=== PATIENT | male | born 1960 | race Caucasian/White ===

== ENCOUNTER 2023-10-29 11:01 | Emergency (ER) | payer OTHER, SELFPAY ==
[2023-10-29 11:02] VITALS: BP 137/84; PULSE 115; RESP 20; TEMP 35.9; O2SAT 94; BMI 27.3
[2023-10-29 11:12] VITALS: O2SAT 95
--- NOTE | 2023-10-29 11:21 | EDS_ITS ---
HPI History of Present Illness Chief Complaint: Shortness of Breath Informant: patient Onset/Context/Timing Onset: Days Narrative Narrative: Patient presents secondary to feeling sick for the past week. He has had cough and congestion and over the last day or 2 is bringing up green-colored sputum. He went to urgent care hoping to get an antibiotic and was sent to the emergency room because his pulse ox was 91% on room air. Patient states he has been winded for quite some time. He has a 40+ pack year smoker. He does not go to a doctor. He states he is never been diagnosed with COPD but does not doubt that he has it. He will occasionally use his 's albuterol inhaler to help with his breathing. He has had some low-grade fevers this past week but it improves with aspirin. He states he will feel some chest pain first in the morning when he is bringing up a lot of thick sputum. PFSH PFSH Medical History no medical history no medical history Home Medications Zithromax Z-Roe 10 mg PO DAILY 01/02/17 [History Last Taken 01/02/17 10:00] oxycodone 5 mg tablet 5 mg PO Q4H PRN PRN Severe Pain (6-10/10) ##20 01/04/17 [Rx Last Taken Unknown] albuterol sulfate 90 mcg/actuation aerosol inhaler (Ventolin HFA) 2 puff inhalation Q4H PRN PRN Wheezing ##1 10/29/23 [Rx Last Taken Unknown] azithromycin 250 mg tablet (Zithromax) 250 mg PO DAILY 4 days #4 tabs 10/29/23 [Rx Last Taken Unknown] prednisone 20 mg tablet 40 mg (2 x 20 mg) PO DAILY #8 tabs 10/29/23 [Rx Last Taken Unknown] Allergy/AdvReac Type Severity Reaction Status Date / Time No Known Allergies Allergy Verified 10/29/23 11:02 Surgical History (Updated 10/29/23 @ 11:[address] Mary Ramos MD) Hx of cholecystectomy Social History Smoking Status: Current every day smoker tobacco type: cigarettes ROS ROS ED Constitutional Constitutional ED: Reports fever(s); Denies chills Eyes Eyes: Denies change in vision or discharge from eye(s) ENT ENT ED: Denies discharge from eye(s), rhinorrhea or sore throat Cardiovascular Cardiovascular: Denies palpitations Respiratory/Chest Respiratory/Chest: Reports cough and dyspnea Gastrointestinal Gastrointestinal: Denies abdominal pain, nausea or vomiting Genitourinary Genitourinary ED: Denies dysuria Musculoskeletal Musculoskeletal: Denies back pain or extremity pain Integumentary Denies Abrasions or rash Neurologic Neurologic: Denies headache(s) or weakness Psychiatric Psychiatric: Denies anxiety or depression Allergic/Immunologic Allergic/Immunologic ED: Denies lip swelling or urticaria EXAM Physical Exam Const Vital Signs: 10/29/23 11:02 10/29/23 11:12 10/29/23 11:12 Temperature 96.7 F L Temperature Source Temporal Pulse Rate 115 H Respiratory Rate 20 H Respiratory Effort Short of Breath Respiratory Depth Normal Blood Pressure 137/84 H Blood Pressure Mean 101 Pulse Ox 94 95 Oxygen Delivery Method Room Air Room Air Room Air 10/29/23 12:29 10/29/23 11:38 Temperature Temperature Source Pulse Rate 103 H 100 Respiratory Rate 20 H 18 Respiratory Effort Respiratory Depth Blood Pressure Blood Pressure Mean Pulse Ox 92 Oxygen Delivery Method Room Air Positive well nourished and well developed General Appearance ED: well developed HEENT Reports moist mucous membranes Eyes EOMs intact bilaterally Chest Wall inspection of chest normal and palpation of chest normal Resp Resp Narrative: Diminished breath sounds bilaterally with wheezing noted. Mild tachypnea. GI non-tender Palpation: soft Extremity normal to inspection Neuro oriented x3 and no sensory deficits noted Motor Exam: strength 5/5 throughout Psych mental status grossly normal Skin no rashes or lesions noted MDM MDM MDM Narrative Medical decision making narrative: Patient given aerosol treatments along with p.o. prednisone. Two-view chest x- ray obtained to evaluate for potential infiltrate. Radiography Chest X-Ray - ED: 2 View, Read by ED Physician and Chronic Changes (Chronic scarring and COPD changes. Questionable infiltrate on the right.) Diagnostic Testing: Clinical Impression(s) from Imaging Studies Chest X-Ray 10/29/23 11:30 IMPRESSION: Question right lower lobe pneumonia versus atelectasis or scarring. COPD. Electronically Signed: Mt Hanson MD at 11:42 EST , Treatment and Re-Evaluation :: After aerosols and steroids patient remains slightly tachypneic with O2 sat of 92% on room air. Lung sounds are diminished but wheezing is improved. He ambulates up and down the coughlin without difficulty. On return to his room his O2 sat is 82% but he quickly recovers. He states that he has been short of breath for quite some time he does not want to come in the hospital. He has not followed up with a doctor. His two-view chest x-ray shows changes consistent with COPD. They question whether the patient may have a right lower lobe infiltrate. Given that he clinically has COPD he will be covered with antibiotics as well as steroids and an inhaler. He is given return instructions. I will also refer him to a local PCP to establish care. Discharge Plan Triage Chief Complaint: Shortness of Breath ED Provider: Mary Ramos Dx/Rx/DC Orders Clinical Impression: COPD exacerbation Instructions: ED COPD Flare Prescriptions: New prednisone 20 mg tablet 40 mg PO DAILY Qty: 8 0RF albuterol sulfate [Ventolin HFA] 90 mcg/actuation HFA aerosol inhaler 2 puff inhalation Q4H PRN PRN (Reason: Wheezing) Qty: 1 0RF azithromycin [Zithromax] 250 mg tablet 250 mg PO DAILY 4 Days Qty: 4 0RF Rx Instructions: start on day 2 of therapy No Action Zithromax Z-Roe 10 mg PO DAILY Patient Comments: ANTIBIOTIC - ONLY 1 MORE PILL TO GO IN ZPACK oxycodone 5 MG tablet 5 mg PO Q4H PRN PRN (Reason: Severe Pain (6-10/10)) Qty: 20 0RF Primary Care Provider: Care Physician,No Primary Referrals: Soraya Williamson MD [Med Staff - Salsa Dance Instructor] - As soon as possible NOT,DEFINED [Non-Staff] - Disposition Disposition: Home, Self Care
--- NOTE | 2023-10-29 11:30 | RAD_ITS ---
EXAM: XR CHEST, 2 VIEWS CLINICAL INDICATION: sob TECHNIQUE: Frontal and lateral views of the chest. COMPARISON: XR Chest dated 01/13/2017 FINDINGS: LUNGS AND PLEURAL SPACES: Right lower lobe pulmonary opacity which may represent focal pneumonia, atelectasis or scarring. Hyperinflation suggesting emphysema. Blunting of the right costophrenic angle may be due to a small amount of fluid or pleural thickening. HEART: Normal heart size. MEDIASTINUM: No mediastinal or hilar mass. BONES/JOINTS: No acute abnormality. RAD/Chest PA and Lateral IMPRESSION: Question right lower lobe pneumonia versus atelectasis or scarring. COPD. Electronically Signed: Mt Hanson MD at 11:42 EST ,
[2023-10-29 11:38] VITALS: PULSE 100; RESP 18
[2023-10-29] MEDS: Albuterol 2.5 MG/3 ML VIAL.NEB. INHALATION ×2 (11:38)
[2023-10-29] MEDS: predniSONE 20 MG Tablet 60 MG PO (11:38)
[2023-10-29] MEDS: Ipratropium/Albuterol Sulfate 3 ML AMPUL.NEB INHALATION (11:38)
--- OUTSIDE RECORDS SUMMARY | 2023-10-29 11:50 | XMS RPT_ITS | CCD ---
Author Name Unknown Address [address] [place] [address] Organization [facility] Care Team Providers Care Car Manager Name Role Phone Isac SWANSON, Agusto Borrero Primary Care Provider Medications Completed/Discontinued Medications Medication Drug Class(es) Dates Sig (Normalized) Sig (Original) [id number] 200 actuat albuterol 0.09 mg/actuat metered dose inhaler (1 source) beta2-Adrenergic Agonist Start: 09-27-2019 take 2 puff(s) by inhalation every four hours as needed for wheezing albuterol HFA (VENTOLIN HFA) 90 mcg/actuation inhaler Inhale 2 Puffs as instructed every 4 hours as needed for Wheezing/Shortnes s of Breath. 1 Inhaler 0 09/27/2019 Active Problems Active Problems Problem Classification Problem Date Documented Da te Episodic/Chronic Other male genital disorders (1 source) Secondary erectile dysfunction; Translations: [Male erectile dysfunction, unspecified] Onset: 08-09-2005 08-14-2006 Chronic Substance-related disorders (1 source) Tobacco user; Translations: [Nicotine dependence, unspecified, uncomplicated] Onset: 10-05-2009 10-05-2009 Chronic Past or Other Problems Problem Classification Problem Date Documented Da te Episodic/Chronic Allergic reactions (1 source) Urticaria; Translations: [Urticaria] Onset: 08-09-2005 08-09-2005 Episodic Biliary tract disease (1 source) Acute cholecystitis; Translations: [Acute cholecystitis] Onset: 01-08-2017 01-08-2017 Episodic Encounters Encounter Date Encounter Type Care Provider Facility Start: 12-06-[address] MD Work Phone: Family Practice Plan of Treatment Date Care Activity Detail Author Start: 10-30-2022 DEPRESSION ASSESSMENT DEPRESSION ASS [place] Start: 06-30-2022 Influenza vaccination INFLUENZA (#1) [facility] Start: 06-22-2022 LIPID SCREEN LIPID SCREEN [facility] Start: 07-14-2021 Urine microalbumin profile DTA P,TDAP,TD (2 - Td or Tdap) [facility] Start: 06-22-2020 DIABETES SCREEN DIABETES SCREEN [facility] Start: 07-07-2019 PROSTATE CANCER SCRE ENING DISCUSSION PROSTATE CANCER SCREENING DISCUSSION [facility] Start: 06-22-2018 COLORECTAL CANCER SCREENING COLORECTAL CANCER SCREENING [facility] Start: 06-22-2018 FECAL OCCULT BLOOD FECAL OCCULT BLOO D [facility] Start: 07-07-2015 PNEUMOCOCCAL (2 - PCV) PNEUMOCOCCAL (2 - PCV) [facility] Start: 2010 SHINGRIX VACCINE (1 of 2) SHINGRIX V ACCINE (1 of 2) [facility] Start: 2005 COLOGUARD (FIT-DNA) COLOGUARD (FIT-D NA) [facility] Start: 2005 Colonoscopy COLONOSCOPY [facility] Start: [address] COLONOGRAPHY [facility] Start: 2005 SIGMOIDOSCOPY SIGMOIDOSCOPY [facility] Start: 1978 HIV SCREENING HIV SCREENING [facility] Start: 03-14-1961 COVID-19 VACCINE (#1) COVID-19 VACCI NE (#1) [facility] Immunizations Immunization Date Immunization Notes Care Provider Melissa thorpe 07-07-2014 pneumococcal polysaccharide vaccine, 23 valent Agusto Freedman MD Work Phone: [facility] 07-14-2011 tetanus toxoid, redu yoli diphtheria toxoid, and acellular pertussis vaccine, adsorbed Agusto Freedman MD Work Phone: [facility] Work Phone: 08-09-2005 tetanus and diphther ia toxoids, not adsorbed, for adult use Agusto Freedman MD Work Phone: [facility] Payers Date Payer Category Payer Private Health Insurance BLANCA PARRISH [id number] 2021-Present [phone] CHARLIE [id number] LILO BARROW [id number] Open Access [id number] Social History Date Type Detail Facility Start: 10-04-2018 Tobacco smoking stat us NHIS Smokes tobacco daily [facility] End: 02-10-2017 History of tobacco use Cigarette Smoker [facility] Start: 10-04-2018 Cigarettes smoked cu rrent (pack per day) - Reported 1.5 [facility] Start: 10-04-2018 Tobacco use and exposure Smoke less tobacco non-user [facility] Start: 05-11-2020 Alcohol intake Current drinke r of alcohol (finding) [facility] Start: 1960 Sex Assigned At Not on file [facility] Progress note 12-13-2022 Note Date & Type Note Facility 12-13-2022 Note HNO ID: [id number] Author: Shahla Lyle Service: ? Author Type: ? Type: Progress Notes Filed: 12/13/2022 12:24 PM Note Text: Patient has established care elsewhere. [facility] Progress note 12-06-2022 Note Date & Type Note Facility 12-06-2022 Note HNO ID: [id number] Author: Patricia Martinez Service: ? Author Type: ? Type: Progress Notes Filed: 12/06/2022 3:53 PM Note Text: 1st attempt left voicemail. Patricia Martinez [facility] Progress note 12-06-2022 Note Date & Type Note Facility 12-06-2022 Note HNO ID: [id number] Author: Xiomara Reddy APRN.CNP Service: ? Author Type: Nurse Practitioner Type: Progress Notes Filed: 12/06/2022 3:53 PM Note Text: Please reach out to this patient to see if he is still planning to keep Dr. Freedman as her PCP as he has not been seen by him since 2017. If so, please schedule an appointment to re-establish care. If not, please remove his name from her chart. Xiomara Reddy APRN.DIMA [facility] History of Present illness Narrative 12-06-2022 Patricia Martinez - 12/06/2022 3:53 PM Laquita Reddy APRN.DIMA - 12/06/2022 2:14 PM EST Note Date & Type Note Facility 12-06-2022 History of Presen t illness Narrative 1st attempt left voicemail. Patricia Martinez Please reach out to this patient to see if he is still planning to keep Dr. Freedman as her PCP as he has not been seen by him since 2016. If so, please schedule an appointment to re-establish care. If not, please remove his name from her chart. Xiomara Reddy APRN.CNP documented in this encounter [facility] Clinical Note 12-06-2022 Note Date & Type Note Facility 12-06-2022 Note Patient Outreach (FP ROSARIODS) ANA SOUZA ([id number]) 1960 M Date Time Provider Department 12/06/22 AGUSTO FREEDMAN During your visit today, we recorded the following information about you: Xiomara Reddy APRN.CNP 12/06/2022 3:53 PM Signed Please reach out to this patient to see if he is still planning to keep Dr. Freedman as her PCP as he has not been seen by him since 2016. If so, please schedule an appointment to re-establish care. If not, please remove his name from her chart. ALEK Arrieta 12/06/2022 3:53 PM Signed 1st attempt left voicemail. Patricia Lyle 12/13/2022 12:24 PM Signed Patient has established care elsewhere. Allergies As of Date: 12/06/2022 (No Known Allergies) Date Reviewed: 05/11/2020 Reviewed by: Julian ([facility]) [place] - Fully Assessed Prescriptions as of 12/13/2022 - albuterol HFA (VENTOLIN HFA) 90 mcg/actuation inhaler Inhale 2 Puffs as instructed every 4 hours as needed for Wheezing/Shortness of Breath. - sildenafil (VIAGRA) 100 mg tablet TAKE 1 TABLET BY MOUTH NEEDED 30 TO 60 MINUTES BEFORE SEXUAL INTERCOURSE. - cyclobenzaprine (FLEXERIL) 10 mg tablet Use 1/2 - 1 tablet at bedtime Problem List As Of Date 12/06/2022 Noted Resolved URTICARIA [708] 08/09/2005 IMPOTENCE, ORGANIC ORIGN [N52.9] 08/09/2005 Tobacco Use Disorder [F17.200] 10/05/2009 Acute cholecystitis [K81.0] 01/08/2017 Encounter Status:Closed by PATRICIA MARTINEZ on 12/06/22 [facility] Summary Purpose Family History No Family History Records Found Advance Directives No Advanced Directives Records Found Additional Source Comments Source Comments (unrecognize d section and content) In the event this informatio n is protected by the Federal Confidentiality of Alcohol and Drug Abuse Patient Records regulations: The Federal rules restrict any use of the information to criminally investigate or prosecute any alcohol or drug abuse patient.[facility] Care Teams (unrecognized sec tion and content) (unrecognized sect ion and content) No Status Records Found INFORMATION SOURCE (unrecogn ized section and content) FOR RECORDS PERTAINING TO PATIENTS WHO ARE OR HAVE BEEN ENROLLED IN A CHEMICAL DEPENDENCY/SUBSTANCEABUSE PROGRAM, SOME INFORMATION MAY BE OMITTED. This clinical summary was aggregated from multiple sources. Caution should be exercised in using it in the provision of clinical care. This summary normalizes information from multiple sources, and as a consequence, information in this document may materially change the coding, format and clinical context of patient data. In addition, data may be omitted in some cases. CLINICAL DECISIONS SHOULD BE BASED ON THE PRIMARY CLINICAL RECORDS. [facility] provides no warranty or guarantee of the accuracy or completeness of information in this document.
[2023-10-29 12:29] VITALS: PULSE 103; RESP 20; O2SAT 92
[2023-10-29] MEDS: Azithromycin 250 MG Tablet 500 MG PO (12:55)
== END 2023-10-29 13:00 | disposition home or self-care (01) ==
PROVIDERS: Emergency Provider Emergency Medicine; Visit Provider Emergency Medicine
DX: J44.1 Chronic obstructive pulmonary disease with (acute) exacerbation (principal); F17.210 Nicotine dependence, cigarettes, uncomplicated
CPT/HCPCS: 71046; 94640; 99282; A4216

== ENCOUNTER → 2024-06-28 | Outpatient (CLI) | payer OTHER, SELFPAY ==
[2024-06-28 09:52] LABS: Bacteria 0 SEEN /hpf (None Seen); Mucous, Urine 0 SEEN /hpf (<or=2+); Red Blood Cells-Urine 0 SEEN /hpf (0-5); Squamous Epithelial Cells - UA 0 SEEN /hpf (0-5); White Blood Cells 0 SEEN /hpf (0-5)
[2024-06-28 12:28] LABS: Color, Urine Yellow (Yellow); Glucose, Dipstick Normal (Normal); Ketone-Dipstick Negative (Negative); Leukocyte Esterase-Dipstick Negative /ul (Negative); Nitrite-Dipstick Negative (Negative); Occult Blood-Urine Negative /ul (Negative); Protein-Dipstick Negative (Negative); Specific Gravity, Urine 1.015 (1.002-1.030); Urine Bilirubin Dipstick Negative (Negative); Urine Clarity Clear (Clear); Urine Urobilinogen Normal (Normal)
[2024-06-28 12:35] LABS: Absolute Lymphocyte Count 1.49 X10^3/uL (0.83-4.51); Absolute Neutrophil Count 6.4 X10^3/uL (2.0-7.7); Basophil# 0.04 X10^3/uL; Basophil% 0.5 % (0-1); Eosinophil# 0.07 X10^3/uL; Eosinophils% 0.8 % (0-5); Hematocrit 48.7 % (40-54); Hemoglobin 15.8 g/dL (13.0-16.5); Lymphocyte # 1.49 X10^3/ul (0.83-4.51); Mean Corp Hgb Conc 32.4 g/dL (32-36); Mean Corpuscular Hgb 27.7 pg (27.0-32.0); Mean Corpuscular Volume 85.4 fL (80-94); Mean Platelet Vol. 10.7 fl (6.2-12.0); Monocyte# 0.75 X10^3/uL; Monocyte% 8.6 % (0-10); NRBC Flagged by Analyzer 0 % (0-5); Neutrophil # 6.35 X10^3/uL (2.7-7.7); Neutrophil % 72.4 % (47-70); Platelet Count 368 K/mm3 (150-450); RBC Distribution Width CV 12.5 % (11.6-14.6); RBC Distribution Width SD 38.9 fl (35.1-43.9); White Blood Count 8.8 K/mm3 (4.4-11.0)
[2024-06-28 12:58] LABS: ALB/GLOB Ratio 0.7 RATIO (0.9-2.4); AST(SGOT) 15 U/L (15-37); Alanine Aminotransfer ALT/SGPT 21 U/L (16-61); Albumin, Serum 3.1 g/dL (3.2-5.0); Alkaline Phosphatase 181 U/L (45-117); Anion Gap 5 (5-15); BUN 6 mg/dL (7-18); BUN/Creat Ratio 8.2 RATIO (10-20); Calcium,Total 9.6 mg/dL (8.5-10.1); Chloride 102 mmol/L (98-107); Cholesterol 224 mg/dL (200); Creatinine, Serum 0.73 mg/dL (0.70-1.30); EST Glomerular Filtration Rate 115 mL/min (>60); Est Glom Filt Rate - Afr Amer 139 mL/min (>60); Globulin 4.2 g/dL (2.2-4.2); Glucose 94 mg/dL (74-106); High Density Lipoprotein 41 mg/dL; Potassium 4.2 mmol/L (3.5-5.1); Protein, Total 7.3 g/dL (6.4-8.2); Sodium Level 135 mmol/L (136-145); Triglycerides 107 mg/dL; Very Low Density Lipoprotein 21 mg/dL (5-40)
[2024-07-04 13:08] LABS: GGTP 82 IU/L (0-65)
== END | disposition home or self-care (01) ==
PROVIDERS: PCP Family Medicine; Visit Provider Family Medicine
DX: R74.8 Abnormal levels of other serum enzymes (principal); R04.2 Hemoptysis; F17.200 Nicotine dependence, unspecified, uncomplicated
CPT/HCPCS: 36415; 80053; 80061; 81001; 82977; 85025

== ENCOUNTER → 2024-07-03 | Outpatient (CLI) | payer OTHER, SELFPAY | END | disposition home or self-care (01) | PROVIDERS: PCP Family Medicine; Referring Provider Family Medicine; Visit Provider Family Medicine | DX: R06.02 Shortness of breath (principal) | CPT/HCPCS: 94060; 94726; 94729 ==

== ENCOUNTER → 2024-07-15 | Outpatient (CLI) | payer OTHER, SELFPAY ==
--- NOTE | 2024-07-15 15:35 | CT_ITS ---
ACR Level 3 findings have been noted. An addendum which confirms receipt of the report will follow. EXAM: CT CHEST WITH INTRAVENOUS CONTRAST CLINICAL INDICATION: hemoptysis, history of tobacco use TECHNIQUE: Helically acquired images were obtained of the chest with intravenous contrast. This CT exam was performed using one or more of the following dose reduction techniques: automated exposure control, adjustment of the mA and/or kV according to patient size, and/or use of iterative reconstruction technique. CONTRAST: 100 cc of Isovue-370 IV. RADIATION DOSE: CTDIvol = 12.71 mGy, DLP = 476.46 mGy-cm COMPARISON: No relevant prior studies available. FINDINGS: LUNGS AND PLEURAL SPACES: Complete obstruction of the proximal right lower lobe bronchus and complete atelectasis of the right lower lobe associated with a probable ill-defined mass measuring up to 3-3.5 cm. Emphysema. Small right pleural effusion. No pneumothorax. HEART: Coronary artery calcifications. Heart size is normal. No pericardial effusion. MEDIASTINUM: Unremarkable. No mediastinal or hilar adenopathy. Esophagus is unremarkable. No hiatal hernia. THYROID: Unremarkable. No thyroid lesions. BONES/JOINTS: Unremarkable. No suspicious lytic or blastic abnormality. VASCULATURE: See above. LYMPH NODES: Multiple enlarged marcela hepatis and gastrohepatic ligament lymph nodes the largest measuring up to 2.1 cm along the short axis. CT/Chest WITH Contrast IMPRESSION: 1. Complete obstruction of the proximal right lower lobe bronchus and complete atelectasis of the right lower lobe associated with a probable ill-defined mass measuring up to 3-3.5 cm. Recommend bronchoscopy for further evaluation. 2. Emphysema. The presence of pulmonary emphysema on CT scan is an independent risk factor for lung cancer. Consider low dose lung cancer screening in the future. This study serves as a baseline. 3. Multiple enlarged marcela hepatis and gastrohepatic ligament lymph nodes the largest measuring up to 2.1 cm along the short axis. 4. Small right pleural effusion. 5. Coronary artery disease. Electronically Signed: Bob Robb MD at 22:13 EDT ,
== END | disposition home or self-care (01) ==
LOC: CT 15:33
PROVIDERS: PCP Family Medicine; Referring Provider Family Medicine; Visit Provider Family Medicine
DX: R04.2 Hemoptysis (principal)
CPT/HCPCS: 71260; Q9967

== ENCOUNTER → 2024-07-25 | Outpatient (CLI) | payer OTHER, SELFPAY | END | disposition home or self-care (01) | LOC: LABSPEC 16:18 | PROVIDERS: PCP Family Medicine; Referring Provider Internal Medicine Pulmonary Disease; Visit Provider Internal Medicine Pulmonary Disease | DX: R04.2 Hemoptysis (principal) | CPT/HCPCS: 87070; 87205 ==

== ENCOUNTER → 2024-07-26 | Outpatient (CLI) | payer OTHER, SELFPAY ==
[2024-07-30 19:07] LABS: QNTFERON TB Mitogen Value > 10.00 IU/mL (.); QNTFERON TB Nil Value 0.04 IU/mL (.); QNTFERON TB1+ Ag Value 0.03 IU/mL (.); QNTFERON TB2+ Ag Value 0.03 IU/mL (.); QNTIFERON TB Positive Criteria Negative (Negative)
== END | disposition home or self-care (01) ==
LOC: LAB 15:43
PROVIDERS: PCP Family Medicine; Referring Provider Internal Medicine Pulmonary Disease; Visit Provider Internal Medicine Pulmonary Disease
DX: R04.2 Hemoptysis (principal)
CPT/HCPCS: 36415; 86480; 87070; 87205

== ENCOUNTER → 2024-07-27 | Outpatient (CLI) | payer OTHER, SELFPAY | END | disposition home or self-care (01) | PROVIDERS: PCP Family Medicine; Referring Provider Internal Medicine Pulmonary Disease; Visit Provider Internal Medicine Pulmonary Disease | DX: R04.2 Hemoptysis (principal) | CPT/HCPCS: 87070; 87077; 87186; 87205 ==

== ENCOUNTER 2024-07-31 10:53 | Day surgery (SDC) | payer OTHER, SELFPAY ==
[2024-07-31] VITALS (10 sets, daily range): BP systolic 95–117; BP diastolic 73–80; PULSE 74–82; RESP 16–22; TEMP 36.4–36.9; O2SAT 92–96; BMI 25.1
--- NOTE | 2024-07-31 | IMM_PTH ---
PATIENT: ANA SOUZA LOC: EN U#:[id number] AGE/SX: 63/M ROOM: RE07/31/[address]: Dr. Ana Ramos MD : 1960 BED: DIS: 07/31/2024 SPEC #: [id number] RECD: 08/01/24 10:53 STATUS: KENJI REQ #: [id number] DELORES: 07/31/24 00:[address]: Ana Ramos V DEPT: IMMUNOHISTOCHEMISTRY RECD BY: Juarez Martinez ENTERED: 08/01/24 10:55 SP TYPE: IMMUNO OTHR DR: Dr. Samir Ortega MD Tissues: Lung, NOS Procedures: Synapto (add) NAPSIN A (add) CD56 (add) CEA (add) CHROMO (add) CK20 (add) CK5-6 (add) CK7 (add) CK8 (add) KI-67 (add) P53 (add) TTF1 (add) Vimentin (add) 34BE12 (add) Pankeratin (initial) P40 (add) CDX2 (add) MOC-31 (add) NSE (add) S-100 (add) PHYSICIAN & INSTITUTION [place] [id number] SPECIMEN INFORMATION: Tissue Source: Right lower lobe biopsy Clinical Info: Specimen Number: [id number] CPT code: 81058,58545m34 METHODOLOGY: Deparaffinized sections of prefer/formalin-fixed tissue or PAP/DQ stained slides are incubated with monoclonal/polyclonal antibodies/oligonucleotide probes. Localization is made via biotin free immunoperoxidase method. Appropriate controls are performed and reacted as expected. Results on target cell population are indicated in the following table: RESULTS: ANTIBODY / CLONE RESULT AE1-3 (AE1/AE3/PCK26) positive CK7 (OV-TL12/30) positive CK8 (32hmmdE17) positive CK20 (KS20.8) negative MOC-31 (4561) positive CDX2 (PZP0729P) negative Vimentin (V9) negative 34BE12 (34BE12) positive, (weak) S-100 (4C4.9) negative CD56 (123C3.D5) negative Chromo (LK2H10) negative Synapto (polyclonal) negative NSE Neuron Specific Enolase negative TTF-1 (8G7G3/1) positive Napsin A (Rabbit Polyclonal) positive CK5-6 (D5 & 1684) negative P40 (BC28) negative CEA (11-7/TF-3HB-1) positive P53 (DO-7) negative, (null pattern) Ki-67 (30-9) positive, moderate These tests were developed and their performance characteristics determined by [facility]. They may not have been cleared or approved by the U.S. Food and Drug Administration. The FDA has determined that such clearance or approval is not necessary. The above immunohistochemical/dualISH markers are ordered by Dr. Kendra Villeda and reviewed by the Pathologist. INTERPRETATION: Right lower lobe, endobronchial biopsy: Non-small cell carcinoma, favor adenocarcinoma. Comment: IHC profile favors lung primary. SJ.mr 08/02/2024
--- NOTE | 2024-07-31 | LUNG_PTH ---
PATIENT: ANA SOUZA LOC: EN U#:[id number] AGE/SX: 63/M ROOM: RE07/31/[address]: Dr. Ana Ramos MD : 1960 BED: DIS: 07/31/2024 SPEC #: [id number] RECD: 07/31/24 13:13 STATUS: KENJI BRIAN #: [id number] DELORES: 07/31/24 00:[address]: Ana Ramos V DEPT: SURGICAL PATHOLOGY RECD BY: Georges Garcia ENTERED: 07/31/24 14:02 SP TYPE: LUNG BX OTHR DR: Dr. Samir Ortega MD Tissues: Right lower lobe of lung, NOS Procedures: Surgery Specimen Level IV HEADER OPERATION: Endobronchial biopsy PRE-OP DIAGNOSIS: TISSUE SUBMITTED: Right lower lobe biopsy MICROSCOPIC DIAGNOSIS Right lower lobe lung, biopsy: Moderately to poorly differentiated non-small cell carcinoma, favor adenocarcinoma. See note and comment. Note: Immunohistochemistry ([id number]) supports the above diagnosis and favors lung primary. MARIANA/ 08/01/2024 COMMENT See also additional specimen ([id number]). Molecular studies on the tumor can be performed if clinically indicated. Please notify the laboratory if they are needed. Case has been reviewed in consultation with Dr. Sanders who concurs with the above diagnosis. IDC:[email or web address] MICROSCOPIC DESCRIPTION Slides are reviewed. GROSS DESCRIPTION Received in fixative is one container labeled with the patient's name and designated Right lower lobe bronchus biopsy. The specimen consists of multiple irregular fragments of pink-red soft tissue that in aggregate measure 2.0 x 0.5 x 0.1 cm. The specimen is totally submitted in one cassette. 07/31/2024 TC:0 CPT:89852 ADDENDUM ADDENDUM ADDENDUM ADDENDUM ADDENDUM ADDENDUM 09/13/2024 08:18 ADDENDUM 09/16/2024 08:29 ADDENDUM 09/16/2024 13:33 ADDENDUM 10/16/2024 08:56 ADDENDUM 09/13/2024 08:18 ADDENDUM 09/13/2024 08:18 ADDENDUM 09/13/2024 08:18 ADDENDUM 09/13/2024 08:18 PD-L1 (KEYTRUDA) IMMUNOHISTOCHEMICAL ANALYSIS FROM [facility] RESULTS: Tumor proportion score: 25%/positive Please see complete report in e-chart or EMR [facility] ADVANCED LUNG CANCER NGS REPORT FROM [facility] RESULT SUMMARY: Abnormal TUMOR TYPE: Non-small cell carcinoma CLINICAL INFORMATION: Right lower lung lobe showed moderately to poorly differentiated non-small cell carcinoma, favor adenocarcinoma. Immunohistochemistry favored lung primary (testing performed on [id number]). HISTOPATHOLOGIC REVIEW: Tumor is present and is estimated to comprise >50% of nuclei in the sample. DETECTED GENOMIC ALTERATIONS: Tier II: Variants of potential clinical significance TP53 p. ([id number]) KRAS p. (Ncw62Dvs) Tier III: Variants of unknown clinical significance EGFR p. ([id number]) IMMUNOTHERAPY BIOMARKERS: Tumor Mutation [place]: HIGH (22.8 mutations/MB) Microsatellite Instability: MSI negative (7.44%) Please see complete report in e-chart or EMR [facility] NEXT GENERATION SEQUENCING GENE FUSION REPORT FROM [facility] INTERPRETATION: NEGATIVE: No pathogenic gene fusions detected involving ALK, BUDDY, BRAF, CCND1, EGFR, FGFR1, FGFR2, FGFR3, MET, NRG1, NTRK1, NTRK2, NTRK3, PPARG, RAF1, RET, ROS1 or THADA. RESULTS: TUMOR CELLULARITY: >50% TUMOR TYPE: Non-small cell carcinoma Please see complete report in e-chart or EMR This addendum is added to incorporate an outside pathology consultation report. The case was examined at [facility] (#[id number]) and the following diagnosis was rendered. Lung, right lower lobe, biopsy: Invasive poorly differentiated adenocarcinoma. See comment. COMMENT: Sections reveal poorly differentiated non-small cell carcinoma with solid and infiltrative growth pattern, and focal luminal formation. The provided immunostains reveal tumor cells to be positive for Pankeratin, 34BE12, CK7, TTF-1 and Napsin, and negative for CK5/6, CK20, p40, CD56, chromogranin, synaptophysin, CDX2 and NSE. Immunostain for p53 shows null pattern. Please see complete above mentioned consultation report in EMR
--- NOTE | 2024-07-31 | FLU_PTH ---
PATIENT: ANA SOUZA LOC: EN U#:[id number] AGE/SX: 63/M ROOM: RE07/31/[address]: Dr. Ana Ramos MD : 1960 BED: DIS: 07/31/2024 SPEC #: [id number] RECD: 07/31/24 13:13 STATUS: KENJI BRIAN #: [id number] DELORES: 07/31/24 00:[address]: Ana Ramos V DEPT: CYTOLOGY RECD BY: Georges Garcia ENTERED: 07/31/24 13:59 SP TYPE: Fluid OTHR DR: Dr. Samir Ortega MD Tissues: Right lower lobe of lung, NOS Procedures: Special Stain Group II Surgery Specimen Level IV Cytospin Fluid HEADER OPERATION: Bronchial biopsy PRE-OP DIAGNOSIS: TISSUE SUBMITTED: Right lower lobe washing DIAGNOSIS CYTOLOGY Lung, washings, right lower lobe (cytospins and cellblock): Rare atypical epithelial cells are present. See comment. AM/mr 08/01/2024 COMMENT See corresponding right lower lobe biopsy ([id number]). Case has been reviewed in consultation with Dr. Sanders who concurs with the above diagnosis. IDC:SJ CYTOLOGY STUDY Slides are reviewed. CYTOLOGY GROSS Received is 65 ml of red cloudy fluid labeled with the patient's name and and designated per the requisition as Right lower lobe. Submitted for cytology preparation including cell block. Mr 07/31/2024 TC:0 CPT: 19112,20458
[2024-07-31] MEDS: Lactated Ringers 1,000 ML 15 ML IV (11:00)
--- NOTE | 2024-07-31 11:35 | PRE.ANES_ITS ---
ASA Classification* ASA Classification ASA Classification: 2 Assessment & Plan Anesthesia* Anesthesia Assessment Anesthesia Assessment: Discussed sedation and/or anesthesia options, risks, benefits, and alternatives with patient/parents/legal guardian/POA. Questions invited. The patient/parents/legal guardian/POA seems to understand and agrees to proceed with anesthesia plan. Reviewed the physical assessment, medical history, allergy history and patient home medications list prior to surgery/procedure/anesthetic and documented any changes. Performed airway and anesthesia risk assessments. Anesthesia Type Anesthesia Type: MAC Anesthesia Focused Assessment* Temperature: 98.5 F Pulse Rate: 77 Blood Pressure: 117/75 Respiratory Rate: 16 Pulse Ox: 95 Airway Assessment Mouth opens: >3 cm Mallampati Score: II Focused Labs Anesthesia Preop lab: CBC WBC 8.8 K/mm3 (4.4-11.0) 06/28/24 09:48 RBC 5.70 M/mm3 (4.6-6.2) 06/28/24 09:48 Hgb 15.8 g/dL (13.0-16.5) 06/28/24 09:48 Hct 48.7 % (40-54) 06/28/24 09:48 Plt Count 368 K/mm3 (150-450) 06/28/24 09:48 CHEMISTRY Potassium 4.2 mmol/L (3.5-5.1) 06/28/24 09:48 Sodium 135 mmol/L (136-145) L 06/28/24 09:48 BUN 6 mg/dL (7-18) L 06/28/24 09:48 Creatinine 0.73 mg/dL (0.70-1.30) 06/28/24 09:48 Glucose 94 mg/dL (74-106) 06/28/24 09:48 COAG Pre-Assessment Diagnosis/Proposed Procedure Planned Operative Procedure(s): BRONCHOSCOPY Anesthesia History Anesthesia History - shredder tender peat: Anesthesia History - shredder tender peat Hx Hospitalization No 07/30/24 13:58 Any Problems With Anesthesia No 07/30/24 13:58 Cholinesterase deficiency No 07/30/24 13:58 You/Your Family Experience No 07/30/24 13:58 fever (hyperthermia) with Relationship Recent Exposure to Contagious No 07/31/24 11:13 Disease Does patient have nerve No 07/30/24 13:58 stimulator Patient instructed to have device shut off --Does patient have Pacemaker No 07/31/24 11:13 or ICD? When Was Last Pacemaker Check QUESTION #4 FULL TEXT: You/Your Family Experience fever (hyperthermia) with Anesthesia Last Oral Intake Last Oral intake: Last Oral Intake NPO since 07:00 07/31/24 11:13 Meds taken in AM with sips of water? Meds patient instructed to take am of surgery PONV PONV - shredder tender peat: PONV - shredder tender peat Female No 07/30/24 13:58 HX of Motion Sickness No 07/30/24 13:58 HX of N/V After Surgery No 07/30/24 13:58 Non-Smoker Yes 07/30/24 13:58 Duration of Surgery greater No 07/30/24 13:58 than 60 minutes Number of Risk Factors 1 07/30/24 13:58 PONV Score Low Risk 07/30/24 13:58 Height & Weight Height & Weight: Anesthesia: Height & Weight Height 5 ft 10 in 07/31/24 11:13 Weight: 79.379 kg 07/31/24 11:13 Body Mass Index (BMI) 25.1 07/31/24 11:13 Respiratory Assessment Respiratory Assessment - shredder tender peat: Respiratory Tract Infection Hx - shredder tender peat Hx Respiratory Tract Infection No 07/30/24 13:58 STOP Sleep Apnea STOP Sleep Apnea - shredder tender peat: STOP Sleep Apnea - shredder tender peat Hx Hypertension No 07/30/24 13:58 Hx Sleep Apnea No 07/30/24 13:58 CPAP No 01/03/17 16:58 BIPAP No 01/03/17 00:02 Do you snore loudly (louder No 07/30/24 13:58 than talking or can be heard Do you often feel tired/ No 07/30/24 13:58 fatigued/ sleepy during daytime? Has anyone observed you stop No 07/30/24 13:58 breathing during sleep? STOP Results Negative 07/30/24 13:58 QUESTION #5 FULL TEXT : Do you snore loudly (louder than talking or can be heard through closed doors)? 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 Specify any problems Hx of Preganancy in last 3 N/A 07/30/24 13:58 Months Nurse Filling Out Transfusion [email or web address] 07/30/24 13:58 & Questions: Date: 07/30/24 07/30/24 13:58 Time: 14:07/30/24 13:58 Patient unable to answer at this time (ie. confused, unrespo /Reproduction History /Reproductive History - shredder tender peat: /Reproductive Hx- shredder tender peat Hx Now Gestational Age (in weeks): EDC: Hx Hx Para Hx Section SAB Active Medications Active Medications: Current Medications Generic Name Dose Route Start Last Admin Trade Name Freq PRN Reason Stop Dose Admin Lactated Ringer's 1,000 mls @ 15 mls/hr 07/31/24 11:00 07/31/24 11:00 IV 15 mls/hr .Q48H CHANA Administration PFSH Medical History (Updated 07/30/24 @ 14:03 by Yvan Fair) Wears dentures Marijuana use Former smoker Hoarseness Chronic cough COPD (chronic obstructive pulmonary disease) Shortness of breath on exertion Home Medications ?Medication ?Instructions ?Recorded ?Last Taken ?Type albuterol sulfate 90 mcg/actuation 2 puff inhalation Q4H PRN PRN 10/29/23 Unknown Rx aerosol inhaler (Ventolin HFA) Wheezing ##1 fluticasone fur. 100 mcg-umeclid 1 inh inhalation DAILY 07/30/24 07/31/24 History 62.5 mcg-vilant 25 mcg inhalat.powder (Trelegy Ellipta) Allergy/AdvReac Type Severity Reaction Status Date / Time No Known Allergies Allergy Verified 07/31/24 11:12 Surgical History Hx of cholecystectomy Social History Smoking Status: Former smoker Review of Systems (Anesthesia) ROS Narrative System reviewed and no additional complaints, except as documented.
[2024-07-31] MEDS: Phenylephrine 0.25% 15 ML NASAL.SRY 15 SPRAY NASAL (12:09)
[2024-07-31] MEDS: Lidocaine 2% (5ml sdv) 5 ML VIAL.MPF (12:09)
[2024-07-31] MEDS: 0.9% Normal Saline (Pres. free 10 ML Vial (12:09)
[2024-07-31] MEDS: Epinephrine (1 mg/ml) 1 MG/ML VIAL (12:09)
[2024-07-31] MEDS: Lidocaine Jelly 2% 20 ML Syringe (URO-JET) 1 APPLIC (12:09)
--- NOTE | 2024-07-31 12:58 | OP.BRONCH_ITS ---
Patient Name: Diaz Flores Procedure Date: 07/31/2024 11:28 AM Date of : 1960 Age: 63 Procedure: Bronchoscopy Indications: Right lower lobe mass Providers: Diaz Ramos MD Referring MD: Diaz Ramos MD Medicines: Lidocaine 2% applied to the tracheobronchial tree 12 mL Complications: No immediate complications Procedure: Pre-Anesthesia Assessment: - A History and Physical has been performed. The patient's medications, allergies and sensitivities have been reviewed. After I obtained informed consent, the scope was passed under direct vision. Throughout the procedure, the patient's blood pressure, pulse, and oxygen saturations were monitored continuously. The bronchoscope was introduced through the right nostril and advanced to the left lung which showed mucus pits but no tumor. Right bronchus interm before the take off of RML showed tumor. The procedure was accomplished without difficulty. The patient tolerated the procedure well. The total duration of the procedure was 40 minutes. Moderate Sedation: An independent trained observer was present and continuously monitored the patient. Findings: The nasopharynx/oropharynx appears normal. The larynx appears normal. The vocal cords appear normal. The subglottic space is normal. The trachea is of normal caliber. The selma is sharp. The tracheobronchial tree of the left lung was examined to at least the first subsegmental level. Bronchial mucosa and anatomy in the left lung are normal; there are no endobronchial lesions, and no secretions. Impression: - Right lower lobe mass - The airway examination of the left lung was normal. - No specimens collected. Recommendation: - Await test results. - Procedure Code(s): --- Professional --- 03881, Bronchoscopy, rigid or flexible, including fluoroscopic guidance, when performed; diagnostic, with cell washing, when performed (separate procedure) Diagnosis Code(s): --- Professional --- R91.8, Other nonspecific abnormal finding of lung field CPT copyright 2021 [employer]. All rights reserved. The codes documented in this report are preliminary and upon dye weigher review may be revised to meet current compliance requirements. MD Diaz Momin MD 07/31/2024 12:58:15 PM This report has been signed electronically. Number of Addenda: 0 Note Initiated On: 07/31/2024 11:28 AM
--- NOTE | 2024-07-31 13:01 | PCM.POST.ANE ---
Anesthesia: Postop Eval I Current Vital Signs Temperature: 97.8 F Pulse Rate: 82 Blood Pressure: 95/73 Respiratory Rate: 16 Pulse Ox: 96 Oxygen Delivery Method: Simple Mask Oxygen Flow Rate (L/min): 4 Assessment Airway patent: Yes Spontaneous unlabored respirations: Yes Mental status: Awake nausea: No Vomiting: No Anesthesia Complication: No Fluid Hydration Crystalloid volume administer (ml): 1,200 Total IV fluid infused: 1,200 Progress Note Anesthesia document: Postop Eval 1 completed: Yes
--- NOTE | 2024-07-31 13:12 | PCM.POSTANE2 ---
Anesthesia Postop Eval I Sum Postop Eval Completion status Anesthesia document: Postop Eval 1 completed: Yes Anesthesia Postop Eval I Summary Anesthesia Postop Eval I Summary: Anesthesia Postop Eval I: Assessment Summary Airway patent Yes 07/31/24 13:03 [email or web address] Spontaneous unlabored Yes 07/31/24 13:03 [email or web address] respirations Mental status Awake 07/31/24 13:03 [email or web address] nausea No 07/31/24 13:03 [email or web address] Vomiting No 07/31/24 13:03 [email or web address] Anesthesia Postop Eval I: Fluid Summary Crystalloid volume administer 1,200 07/31/24 13:03 [email or web address] (ml) Colloids volume administered ( ml) Blood Product volume administered (ml) Total IV fluid infused 1,200 07/31/24 13:03 [email or web address] Anesthesia Postop Eval I: Summary Notes Anesthesia Complication No 07/31/24 13:03 [email or web address] Anesthesia Complication Comment: Post-operative progress note Anesthesia: Postop Eval II Evaluation Mental status: Awake Pain Level: 0 nausea: No Vomiting: No
[2024-07-31 13:23] LABS: Cytology, Body Fluid / CSF SEE PATHOLOGY REPORT
== END 2024-07-31 13:47 | disposition home or self-care (01) ==
LOC: EN 10:55 → AC 10:58
PROVIDERS: PCP Family Medicine; Referring Provider Family Medicine; Visit Provider Internal Medicine Pulmonary Disease
PROC: 0BJ08ZZ Inspection of Tracheobronchial Tree, Via Natural or Artificial Opening Endoscopic (ICD-10-PCS; CPT 31622; principal; 2024-07-31 11:45)
DX: C34.31 Malignant neoplasm of lower lobe, right bronchus or lung (principal); J44.9 Chronic obstructive pulmonary disease, unspecified; J90 Pleural effusion, not elsewhere classified; Z87.891 Personal history of nicotine dependence
CPT/HCPCS: 81002; 88108; 88305; 88313; 88341; 88342; J7120; J2405; J3490

== ENCOUNTER 2024-08-20 08:16 | Outpatient (CLI) | payer OTHER, SELFPAY ==
--- NOTE | 2024-08-20 | FLU_PTH ---
PATIENT: ANA SOUZA LOC: ONC U#:[id number] AGE/SX: 63/M ROOM: RE08/20/[address]: Dr. Ana Ramos MD : 1960 BED: DIS: 08/20/2024 SPEC #: [id number] RECD: 08/20/24 12:47 STATUS: KENJI BRIAN #: [id number] DELORES: 08/20/24 00:[address]: Ana Ramos V DEPT: CYTOLOGY RECD BY: Georges Garcia ENTERED: 08/21/24 10:19 SP TYPE: Fluid OTHR DR: Dr. Samir Ortega MD Tissues: THORACIC FLUID Procedures: Special Stain Group II Surgery Specimen Level IV Cytospin Fluid HEADER OPERATION: Thoracentesis fluid PRE-OP DIAGNOSIS: Pleural effusion TISSUE SUBMITTED: Thoracentesis fluid for cytology DIAGNOSIS CYTOLOGY Thoracentesis fluid for cytology (cytospins and cellblock): Negative for malignant cells. See comment. AM. 08/22/2024 COMMENT The specimen contains polymorphous lymphocytes. Clinical correlation is suggested. CYTOLOGY STUDY Slides are reviewed. CYTOLOGY GROSS Received is 85 ml of hazy-stephan fluid labeled with the patient's name and and designated per the requisition as Thoracentesis fluid. Submitted for cytology preparation including cell block. Mr 08/21/2024 TC:5 CPT: 73725,73453
--- NOTE | 2024-08-20 08:30 | PET_ITS ---
EXAMINATION: FDG PET-CT INDICATIONS: A 63-year-old male with history of primary lung carcinoma presenting for initial staging examination. COMPARISON EXAMINATION: CT of the chest 07/15/2024 INDEX LESION SIZE SUV INTERPRETATION Right lower lung field, right lower lobe 53.3-mm 13.5 Fulfills quantitative criteria for viable neoplasm Right pharyngeal mucosal space, right lateral and anterior neck, periclavicular regions 33.5-mm (largest) 10.5 (max) Fulfills quantitative criteria for viable neoplasm Abdominal retroperitoneum 44.8-mm 10.6 Fulfills quantitative criteria for viable neoplasm TECHNIQUE: Following the intravenous administration of 12.65 mCi of F-18 deoxyglucose via the right antecubital fossa, multiplanar image acquisitions of the neck, chest, abdomen and pelvis to level of mid thigh, obtained at one hour post radiopharmaceutical administration contemporaneously interpreted with the current CT of the neck, chest, abdomen and pelvis, to level of mid thigh, dated 08/19/24 via coregistration reveals: BLOOD GLUCOSE LEVEL:?? 67 mg/dl?HEIGHT:?70 inches?WEIGHT: 180 lbs. FINDINGS: HEAD/NECK: Asymmetric increased radiopharmaceutical concentration is defined in the right pharyngeal mucosal space, the right lateral neck involving level IIA-B and III, the right anterior neck involving level IV and periclavicular regions. The calculated maximal standard uptake value is 10.5. The maximal axial diameter of the largest corresponding soft tissue density is 33.5-mm. The visualized portion of the cerebral cortical-subcortical structures demonstrate symmetric and preserved glucose metabolism. CHEST: Facilitated uptake is noted in the right lower posteromedial, posterior lung field, the right lower lobe. The calculated maximal standard uptake value is 13.5. The maximal axial diameter of the corresponding parenchymal density is 53.3-mm. Pertinent chest CT findings are as follows. A right hemithorax pleural effusion is ametabolic. There is atherosclerotic calcification defined in the thoracic aorta without evidence of dilatation-aneurysm formation. Coronary arterial calcification is observed. Bilateral axillary soft tissue densities are ametabolic. ABDOMEN/PELVIS: Enhanced tracer concentration is demonstrated in the upper abdominal retroperitoneum, lawrence-pancreatic, gastric in location generating a calculated maximal standard uptake value of 10.6. The largest corresponding soft tissue density demonstrates a maximal axial diameter of 44.8-mm. Normal physiologic distribution of the radiopharmaceutical is apparent in the hepatic (2.3) and splenic parenchyma, both renal units, bladder and visualized intestinal tract. Diffuse radiopharmaceutical concentration is noted in all four quadrants of the abdomen and pelvis. Pertinent abdomen and pelvis CT findings are as follows. Calcification is defined within the prostate gland. Colonic diverticulosis is demonstrated without evidence of diverticulitis. Right and left inguinal soft tissue densities are ametabolic. There is atherosclerotic calcification defined in the abdominal aorta without evidence of dilatation-aneurysm formation. Pelvic arterial calcification is observed. SKELETAL: Degenerative changes are noted in the cervical, thoracic and lumbar spine without evidence of increased radiopharmaceutical concentration. PET/PET/CT Tumor Limited Initial IMPRESSION: 1. ABNORMAL EXAMINATION INDICATIVE OF MALIGNANT VIABLE NEOPLASM. 2. Increased tracer uptake noted in the right pharyngeal mucosal space, right lateral and anterior neck, periclavicular regions fulfills quantitative criteria for viable neoplasm. 3. Enhanced tracer uptake visualized in the right lower lung field, right lower lobe fulfills quantitative criteria for malignant transformation. 4. The facilitated FDG observed in the upper abdominal retroperitoneum fulfills quantitative criteria for malignant transformation. Electronic Signature Rigo Garcia D.O. Accurate Quantification of SUVs for this report are calculated using the exclusive [employer], ([place].S. Patent No. [id number] [phone] [phone] [place] patent [phone] ). Standardization and correction of the FDG SUV metric exclusively available with [employer] intellectual property, allow for vendor non-specific objective quantitative sequential FDG PET-CT comparison and otherwise unobtainable optimization of the sensitivity and specificity of the examination. [email or web address] Electronically Signed: Rigo Garcia DO at 8:38 EDT ,
--- NOTE | 2024-08-20 11:40 | US_ITS ---
PROCEDURE: ULTRASOUND GUIDED THORACENTESIS. DATE: August 20, 2024.. INDICATION: Male, 63 years old. Right pleural effusion. PHYSICIAN: Janak Alvarez M.D. PROCEDURE: The risks, benefits, and alternatives to the procedure were explained to the patient. The specific risks of bleeding, infection, and pneumothorax requiring chest tube insertion were discussed and accepted. Written informed consent was obtained. Ultrasonographic evaluation of the right lower pleural space was carried out. An adequate pocket was identified. The patient was placed in the sitting, upright position. The overlying skin was prepped and draped in sterile fashion. 1% lidocaine was administered subcutaneously for local anesthesia. Under ultrasound guidance, a 5 [place] thoracentesis needle/catheter system was advanced into the right posterior lower pleural fluid collection. Approximately 240 mL of dark stephan-colored fluid was drained. The catheter was removed, and a sterile dressing was applied. A specimen was collected and sent to the laboratory for analysis, as requested by the referring clinician. The patient tolerated the procedure well. A chest x-ray was ordered. US/Thoracentesis W US IMPRESSION: Ultrasound-guided right thoracentesis. Electronically Signed: Janak Alvarez MD at 12:59 EDT ,
[2024-08-20 12:20] VITALS: BP 117/75; PULSE 101; RESP 18; TEMP 36.7; O2SAT 97
[2024-08-20] MEDS: Lidocaine 2% (20 ml mdv) 20 ML Vial INFILT (12:23)
[2024-08-20 12:29] VITALS: BP 110/74; PULSE 91; RESP 18; O2SAT 95
--- NOTE | 2024-08-20 12:30 | RAD_ITS ---
STUDY: X-RAY CHEST REASON FOR EXAM: Male, 63 years old. Post thoracentesis TECHNIQUE: AP inspiration and expiration views. COMPARISON: Comparison is made with prior study October 29, 2023. FINDINGS: The patient is status post right thoracentesis. No evidence of pneumothorax. Residual pleural parenchymal changes are seen at the right lung base. The left lung is hyperexpanded. RAD/Chest Insp/Exp 2 View IMPRESSION: Status post right thoracentesis. There is no evidence of pneumothorax. Residual pleural parenchymal changes at the right lung base. Electronically Signed: Janak Alvarez MD at 12:45 EDT ,
[2024-08-20 12:35] VITALS: BP 119/76; PULSE 93; RESP 18; O2SAT 95
== END 2024-08-20 23:59 | disposition home or self-care (01) ==
PROVIDERS: PCP Family Medicine; Referring Provider Internal Medicine Pulmonary Disease; Visit Provider Internal Medicine Pulmonary Disease
DX: C34.92 Malignant neoplasm of unspecified part of left bronchus or lung (principal); J90 Pleural effusion, not elsewhere classified
CPT/HCPCS: 32555; 71046; 78814; 88108; 88305; 88313; A9552

== ENCOUNTER 2024-09-10 06:25 | Day surgery (SDC) | payer OTHER, SELFPAY ==
[2024-09-10] VITALS (7 sets, daily range): BP systolic 93–109; BP diastolic 67–78; PULSE 84–88; RESP 14–18; TEMP 36.2–36.9; O2SAT 94–100; BMI 25.3
--- NOTE | 2024-09-10 06:43 | PCM.PRE.AN2 ---
ASA Classification* ASA Classification ASA Classification: 2 Assessment & Plan Anesthesia* Anesthesia Assessment Anesthesia Assessment: Discussed sedation and/or anesthesia options, risks, benefits, and alternatives with patient/parents/legal guardian/POA. Questions invited. The patient/parents/legal guardian/POA seems to understand and agrees to proceed with anesthesia plan. Reviewed the physical assessment, medical history, allergy history and patient home medications list prior to surgery/procedure/anesthetic and documented any changes. Performed airway and anesthesia risk assessments. Anesthesia Type Anesthesia Type: General Anesthesia Focused Assessment* Airway Assessment Mouth opens: >3 cm Mallampati Score: II Focused Labs Anesthesia Preop lab: CBC WBC 8.8 K/mm3 (4.4-11.0) 06/28/24 09:48 RBC 5.70 M/mm3 (4.6-6.2) 06/28/24 09:48 Hgb 15.8 g/dL (13.0-16.5) 06/28/24 09:48 Hct 48.7 % (40-54) 06/28/24 09:48 Plt Count 368 K/mm3 (150-450) 06/28/24 09:48 CHEMISTRY Potassium 4.2 mmol/L (3.5-5.1) 06/28/24 09:48 Sodium 135 mmol/L (136-145) L 06/28/24 09:48 BUN 6 mg/dL (7-18) L 06/28/24 09:48 Creatinine 0.73 mg/dL (0.70-1.30) 06/28/24 09:48 Glucose 94 mg/dL (74-106) 06/28/24 09:48 COAG Pre-Assessment Diagnosis/Proposed Procedure Planned Operative Procedure(s): RIGHT TONSILLECTOMY Anesthesia History Anesthesia History - lending consultant: Anesthesia History - lending consultant Hx Hospitalization No 09/06/24 13:02 Any Problems With Anesthesia No 09/06/24 13:02 Cholinesterase deficiency No 09/06/24 13:02 You/Your Family Experience No 09/06/24 13:02 fever (hyperthermia) with Relationship Recent Exposure to Contagious No 07/31/24 11:13 Disease Does patient have nerve No 09/06/24 13:02 stimulator Patient instructed to have device shut off --Does patient have Pacemaker or ICD? When Was Last Pacemaker Check QUESTION #4 FULL TEXT: You/Your Family Experience fever (hyperthermia) with Anesthesia Last Oral Intake Last Oral intake: Last Oral Intake NPO since Meds taken in AM with sips of water? Meds patient instructed to take am of surgery PONV PONV - lending consultant: PONV - lending consultant Female No 09/06/24 13:02 HX of Motion Sickness No 09/06/24 13:02 HX of N/V After Surgery No 09/06/24 13:02 Non-Smoker Yes 09/06/24 13:02 Duration of Surgery greater No 09/06/24 13:02 than 60 minutes Number of Risk Factors 1 09/06/24 13:02 PONV Score Low Risk 09/06/24 13:02 Height & Weight Height & Weight: Anesthesia: Height & Weight Height 5 ft 10 in 07/31/24 11:13 Respiratory Assessment Respiratory Assessment - lending consultant: Respiratory Tract Infection Hx - lending consultant Hx Respiratory Tract Infection No 09/06/24 13:02 STOP Sleep Apnea STOP Sleep Apnea - lending consultant: STOP Sleep Apnea - lending consultant Hx Hypertension No 09/06/24 13:02 Hx Sleep Apnea No 09/06/24 13:02 CPAP No 09/06/24 13:02 BIPAP No 09/06/24 13:02 Do you snore loudly (louder No 09/06/24 13:02 than talking or can be heard Do you often feel tired/ No 09/06/24 13:02 fatigued/ sleepy during daytime? Has anyone observed you stop No 09/06/24 13:02 breathing during sleep? STOP Results Negative 09/06/24 13:02 QUESTION #5 FULL TEXT : Do you snore loudly (louder than talking or can be heard through closed doors)? Tobacco Use History Tobacco Use History - lending consultant: Tobacco Use History - lending consultant Tobacco Use Smoking Status Former smoker 09/06/24 13:02 Hx Tobacco Use Yes 09/06/24 13:02 Years Smoking Packs Smoked per Day Smoking Cessation Date was Yes - quit smoking within 15 09/06/24 13:02 within the last 15 years years Hx Smoking Cessation Date 08/13/24 09/06/24 13:02 Hx Smoking Cessation Counseling Hematologic Medial History Hematologic Hx - lending consultant: Hematologic Medical Hx - director on air Hx of Blood Transfusion No 09/06/24 13:02 Hx of Transfusion in last 3 No 09/06/24 13:02 Months Date of Last Transfusion (if within last 3 months) Ever experience any problems No 09/06/24 13:02 with transfusion(s)? Specify any problems Hx of Preganancy in last 3 N/A 09/06/24 13:02 Months Nurse Filling Out Transfusion NBUCHER 09/06/24 13:02 & Questions: Date: 09/06/24 09/06/24 13:02 Time: 13:04 09/06/24 13:02 Patient unable to answer at this time (ie. confused, unrespo /Reproduction History /Reproductive History - lending consultant: /Reproductive Hx- lending consultant Hx Now No 09/06/24 13:02 Gestational Age (in weeks): EDC: Hx Hx Para Hx Section SAB No 09/06/24 13:02 Active Medications Active Medications: Current Medications Generic Name Dose Route Start Last Admin Trade Name Freq PRN Reason Stop Dose Admin Lactated Ringer's 1,000 mls @ 15 mls/hr 09/10/24 06:45 IV 09/15/24 20:04 .Q48H [facility] Protocol PFSH Medical History Cancer Wears dentures Marijuana use Former smoker Hoarseness Chronic cough COPD (chronic obstructive pulmonary disease) Shortness of breath on exertion Home Medications ?Medication ?Instructions ?Recorded ?Last Taken ?Type albuterol sulfate 90 mcg/actuation 2 puff inhalation Q4H PRN PRN 10/29/23 Unknown Rx aerosol inhaler (Ventolin HFA) Wheezing ##1 fluticasone fur. 100 mcg-umeclid 1 inh inhalation DAILY 07/30/24 07/31/24 History 62.5 mcg-vilant 25 mcg inhalat.powder (Trelegy Ellipta) Allergy/AdvReac Type Severity Reaction Status Date / Time No Known Allergies Allergy Verified 09/06/24 13:02 Surgical History History of bronchoscopy History of oral surgery Hx of cholecystectomy Social History Smoking Status: Former smoker Review of Systems (Anesthesia) ROS Narrative System reviewed and no additional complaints, except as documented.
--- NOTE | 2024-09-10 06:44 | EKG12_ITS ---
Test Reason : PRE OP Blood Pressure : */* mmHG Vent. Rate : 83 BPM Atrial Rate : 83 BPM P-R Int : 150 ms QRS Dur : 76 ms QT Int : 368 ms P-R-T Axes : 38 30 53 degrees QTcB Int : 432 ms Normal sinus rhythm Normal ECG When compared with ECG of 03-Jan-2017 04:25, No significant change was found Confirmed by HAILEE SWANSON, BHUPINDER ([id number]), web content editor LANDON SCHMIDT ([id number]) on 09/12/2024 6:17:08 AM Referred By: Galdino Verdin Confirmed By: BHUPINDER STEPHEN MD
[2024-09-10] MEDS: Lactated Ringers 1,000 ML 15 ML IV (07:13)
[2024-09-10 07:17] LABS: Hematocrit 41.6 % (40-54); Hemoglobin 13.9 g/dL (13.0-16.5); Mean Corp Hgb Conc 33.4 g/dL (32-36); Mean Corpuscular Hgb 28.1 pg (27.0-32.0); Mean Platelet Vol. 10.4 fl (6.2-12.0); Platelet Count 340 K/mm3 (150-450); RBC Distribution Width CV 13.6 % (11.6-14.6); RBC Distribution Width SD 41.9 fl (35.1-43.9); Red Blood Count 4.95 M/mm3 (4.6-6.2); White Blood Count 7.8 K/mm3 (4.4-11.0)
[2024-09-10 08:02] LABS: Anion Gap 6 (5-15); BUN 8 mg/dL (7-18); BUN/Creat Ratio 16.1 RATIO (10-20); Calcium,Total 9.1 mg/dL (8.5-10.1); Chloride 106 mmol/L (98-107); EST Glomerular Filtration Rate 179 mL/min (>60); Est Glom Filt Rate - Afr Amer 217 mL/min (>60); Estimated Creatinine Clearance 156.14 ml/min; Glucose 104 mg/dL (74-106); Potassium 3.8 mmol/L (3.5-5.1); Sodium Level 137 mmol/L (136-145)
--- NOTE | 2024-09-10 08:07 | DCINST_ITS ---
Discharge Instructions Diet Discharge Diet: Light diet - advance as tolerated Activity Discharge Activity: Return to Normal Activity Dressing / Incision Call your doctor if your incision/area has: Sudden Increased Bleeding Follow Up Care Please Follow Up With: Galdino Verdin MD When: 2 weeks Test Results: Test results from this visit will be discussed in further detail at your follow- up appointment, if applicable. Discharge Plan Admission Attending Provider: Galdino Verdin Primary Care Provider: Samir Ortega Instructions Print Language: Lithuanian Discharge Orders/Prescriptions Prescriptions: No Action albuterol sulfate [Ventolin HFA] 90 mcg/actuation HFA aerosol inhaler 2 puff inhalation Q4H PRN PRN (Reason: Wheezing) Qty: 1 0RF Trelegy Ellipta 100-62.5-25 mcg blister with device 1 inh inhalation DAILY Referrals / Follow Up: Samir Ortega MD [Primary Care Provider] - Disposition Disposition (needs filled in before D/C Order can be placed): Home, Self Care
--- NOTE | 2024-09-10 08:08 | PCM.OPRPT ---
Problems Associated Problem List Diagnoses (1) Malignant neoplasm of tonsil: Operative Report (Standard) Operative Information Surgery/Procedure Performed: right tonsillectomy Surgeon: Galdino Verdin Date of Procedure: 09/10/24 Procedure Start Time: 08:10 Procedure Stop Time: 08:35 Pre-Operative Diagnosis: right tonsillar mass Post-Operative Diagnosis: right tonsillar mass Select all DRAINS/GRAFTS/IMPLANTS that apply: None Type of Anesthesia: General Estimated Blood Loss: 0 Specimen collected: Yes Description of specimen(s) removed: right tonsil Description of surgery: on the day of the procedure, after appropriate informed consent was obtained, the patient was brought to the operating room and placed on the operating table. he was placed under general endotracheal anesthesia by the anesthesiologist. the eyes were taped, the tube was secured. the table was rotated 90 degrees toward the surgeon. a head drape was placed. a remi devin was inserted into the oral cavity with care not to damage oral cavity structures. a red rubber catheter was inserted to elevate the soft palate. the right tonsil was grasped with a curved allis, retracted medially, dissected and removed using the bovie. hemostasis was achieved with suction cautery. a valsalva maneuver was held and hemostasis was observed. Surgical Findings: none Windows Mobile Developer profile mill operator tape control: No Complications Complications: No Admit VTE Documentation VTE Mechan Device Prophylaxis: SCD's
--- NOTE | 2024-09-10 08:10 | TONS_PTH ---
PATIENT: ANA SOUZA LOC: [facility] – [place] U#:[id number] AGE/SX: 63/M ROOM: RE09/10/[address]: Dr. Galdino Verdin MD : 1960 BED: DIS: 09/10/2024 SPEC #: [id number] RECD: 09/10/24 09:12 STATUS: KENJI TORRES #: [id number] DELORES: 09/10/24 08:[address]: Galdino Verdin DEPT: SURGICAL PATHOLOGY RECD BY: Bere Alvarez ENTERED: 09/10/24 10:09 SP TYPE: TONSILS OTHR DR: Dr. Samir Ortega MD Tissues: Tonsil, NOS Procedures: Surgery Specimen Level III HEADER OPERATION: Tonsillectomy PRE-OP DIAGNOSIS: Right lung carcinoma, cervical nodes and right unilateral tonsil TISSUE SUBMITTED: Right tonsil MICROSCOPIC DIAGNOSIS Right tonsil, tonsillectomy: Tonsillar tissue with mild reactive changes, negative for malignancy. See comment. 09/11/2024 COMMENT Please make reference to previous specimen [id number] right lower lobe lung, biopsy with diagnosis of moderately to poorly differentiated non-small cell carcinoma, favor adenocarcinoma. Clinical correlation and appropriate follow up are necessary. Case has been reviewed in consultation with Dr. Villeda who concurs with the above diagnosis. IDC:AM MICROSCOPIC DESCRIPTION Slides are reviewed. GROSS DESCRIPTION Received is one container labeled with the patient's name and designated tonsil is one tonsil that in aggregate weigh 1.6 gm. The tonsil measures 2.6 x 1.5 x 0.8 cm. The external surfaces are pink-covington, smooth, glistening and somewhat lobulated. Focally they are hemorrhagic, granular and bear cautery artifact. Serial cross sections through the tonsils reveal normal tonsillar architecture. Entire specimen is submitted in two cassettes. 09/10/2024 TC:5 CPT: 25312
--- NOTE | 2024-09-10 08:51 | PCM.POST.ANE ---
Anesthesia: Postop Eval I Current Vital Signs Temperature: 97.1 F Pulse Rate: 85 Blood Pressure: 106/73 Respiratory Rate: 14 Pulse Ox: 100 Oxygen Delivery Method: Simple Mask Oxygen Flow Rate (L/min): 6 Assessment Airway patent: Yes Spontaneous unlabored respirations: Yes Mental status: Awake nausea: Yes Vomiting: Yes Anesthesia Complication: No Fluid Hydration Crystalloid volume administer (ml): 900 Total IV fluid infused: 900 Progress Note Anesthesia document: Postop Eval 1 completed: Yes
[2024-09-10] MEDS: HYDROcodone Bitartrate/Apap 5/325 Tablet PO (09:32)
--- NOTE | 2024-09-10 09:42 | POSTOPAN2_ITS ---
Anesthesia Postop Eval I Sum Postop Eval Completion status Anesthesia document: Postop Eval 1 completed: Yes Anesthesia Postop Eval I Summary Anesthesia Postop Eval I Summary: Anesthesia Postop Eval I: Assessment Summary Airway patent Yes 09/10/24 08:52 OPERATOR [email or web address] Spontaneous unlabored Yes 09/10/24 08:52 OPERATOR [email or web address] respirations Mental status Awake 09/10/24 08:52 OPERATOR [email or web address] nausea Yes 09/10/24 08:52 OPERATOR [email or web address] Vomiting Yes 09/10/24 08:52 OPERATOR [email or web address] Anesthesia Postop Eval I: Fluid Summary Crystalloid volume administer 900 09/10/24 08:52 OPERATOR [email or web address] (ml) Colloids volume administered ( ml) Blood Product volume administered (ml) Total IV fluid infused 900 09/10/24 08:52 OPERATOR [email or web address] Anesthesia Postop Eval I: Summary Notes Anesthesia Complication No 09/10/24 08:52 OPERATOR [email or web address] Anesthesia Complication Comment: Post-operative progress note Anesthesia: Postop Eval II Evaluation Mental status: Awake and Calm Pain Level: 1 nausea: No Vomiting: No Complications Anesthesia Complication: No
--- NOTE | 2024-09-10 09:42 | PCM.POSTANE2 ---
Anesthesia Postop Eval I Sum Postop Eval Completion status Anesthesia document: Postop Eval 1 completed: Yes Anesthesia Postop Eval I Summary Anesthesia Postop Eval I Summary: Anesthesia Postop Eval I: Assessment Summary Airway patent Yes 09/10/24 08:52 EXTERNAL RELATIONS [email or web address] Spontaneous unlabored Yes 09/10/24 08:52 EXTERNAL RELATIONS [email or web address] respirations Mental status Awake 09/10/24 08:52 EXTERNAL RELATIONS [email or web address] nausea Yes 09/10/24 08:52 EXTERNAL RELATIONS MANAGER.[email or web address] Vomiting Yes 09/10/24 08:52 EXTERNAL RELATIONS MANAGER.HBARR Anesthesia Postop Eval I: Fluid Summary Crystalloid volume administer 900 09/10/24 08:52 EXTERNAL RELATIONS MANAGER.HBARR (ml) Colloids volume administered ( ml) Blood Product volume administered (ml) Total IV fluid infused 900 09/10/24 08:52 EXTERNAL RELATIONS MANAGER.HBARR Anesthesia Postop Eval I: Summary Notes Anesthesia Complication No 09/10/24 08:52 EXTERNAL RELATIONS MANAGER.[email or web address] Anesthesia Complication Comment: Post-operative progress note Anesthesia: Postop Eval II Evaluation Mental status: Awake and Calm Pain Level: 1 nausea: No Vomiting: No Complications Anesthesia Complication: No
== END 2024-09-10 09:52 | disposition home or self-care (01) ==
LOC: SDC 06:25 → AC 06:26
PROVIDERS: PCP Family Medicine; Referring Provider Otolaryngology; Visit Provider Otolaryngology
PROC: (CPT 42826; principal; 2024-09-10 07:55)
DX: C11.1 Malignant neoplasm of posterior wall of nasopharynx (principal); J44.9 Chronic obstructive pulmonary disease, unspecified; Z87.891 Personal history of nicotine dependence
CPT/HCPCS: 42826; 00170; 80048; 85027; 88304; 93005; J7120; J2405

== ENCOUNTER → 2024-10-29 | Outpatient (CLI) | payer OTHER, SELFPAY ==
--- NOTE | 2024-10-29 11:03 | RAD_ITS ---
STUDY: X-RAY CHEST REASON FOR EXAM: Male, 64 years old. COPD TECHNIQUE: PA and lateral views of the chest. COMPARISON: 08/20/2024 FINDINGS: Interval placement of right internal jugular chest port. The lungs are clear and expanded. Small right pleural effusion. Normal size heart. Normal mediastinum and anay. Normal visualized pulmonary arteries. Normal visualized aortic arch and descending thoracic aorta. Normal visualized thoracic spine. Normal visualized ribs, clavicles, and shoulders. There is no demonstrated abnormality of the visualized soft tissue structures of the upper abdomen. RAD/Chest PA and Lateral IMPRESSION: Small right pleural effusion. Electronically Signed: Rigo Ardon MD at 23:27 [facility] ,
== END | disposition home or self-care (01) ==
LOC: MTRAD 11:02
PROVIDERS: PCP Family Medicine
DX: J44.1 Chronic obstructive pulmonary disease with (acute) exacerbation (principal)
CPT/HCPCS: 71046

== ENCOUNTER 2025-01-13 18:00 | Outpatient (RCR) | payer OTHER, MEDICAID, SELFPAY ==
--- NOTE | 2024-11-29 08:58 | HP.OTEVAL_ITS ---
Patient's Visit Information Visit Information Visit Information: ANA SOUZA is a 64 year old M, referred to Occupational Therapy by ALMA FALCON, with a diagnosis of lymphoma Myeloma/debility. Date of Evaluation: 11/29/24 Occupational Therapist: Ca Smith, OTR/Angeline, CHT Subjective Subjective: This 64 year old male was seen for OT eval with dx of lymphoma Myeloma./ Debility. Pt states he was dx in 2023 with the Adenocarcinoma of right lung - ( this treatment is on hold until the lymphoma treatment is finished) pt was admitted to the hospital 2024 and D/C on 2024 Pt started Lymphoma treatment on . This treatment was done while pt was in hospital pt was discharged from on 2024. pt states he will have his chemo every 3 weeks having 6 rounds of chemo- then treatment for the lung cancer. 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 alas and dx. pt is right-handed pt reports low back pian very limiting and sitting pain is 5/10 most of the time- pain is limiting functional mobility and performance of ADLs and IADLs. pt wants to get stronger to improve his quality of ADLs. ADLs Comments: pt lives with in two story home entry 4 entry with no rail will help and use wall for assistance tub shower combination- with grab bars pt ambulates outside of home with rollator pt has BSC pt does use O2 2 liters pt did get hospital bed and has lift recliner Pain low back pain: Current Pain Intensity: 5 Pain Intensity Range: 5 and 6 ROM ROM Comments: pt demo with good ROM of bilateral UB Strength Elbow: Biceps R/L 13# triceps R 19#/left 23# [place] Member: right 70# left 65# Lateral Pinch: right 20# left 20# Tripod Pinch: right 18# left 18# Strength Comments: pt demo with generalized weakness affecting pts functional safe mobility Quick DASH-Disab of Arm,Shoulder& Hand Quick DASH Score: 61.3625 Goals Goal:: pt will demo a increase in bilateral UB strength by 15# to increase pts safe functional mobility pt will dmeo a increase in bilateral collar packer strength by 10# to increase IND with ADLs and IADLs Goal:: pt will report pain no greater than 2/10 with sitting for 15 min by d/c pt will demo sitting tolerance for 30 min with pain no greater than 3/10 by dc Goal:: pt and family will demo understanding of using ad. eq. to conserve energy to perform ADLs at IND level by d/c pt and family will demo understanding of using ad. eq. to increase safety by d/c Goal:: pt will demo the ability to perform dynamic sitting balance tasks with no pain greater than 3/10 for functional ADLs by dc pt will demo increase in dynamic standing tolerance to 4 min to increase pts I ND with grooming ADLs and skink by d/c pt and family will report understanding of safety jolene. for functional mobility in and out of home with rollator by d/c Rehabilitation General Assessment: pt demo with debility following new onset dx of lymphoma Myeloma and low back pain. pt demo a decline in his functional mobility and increase pain with sitting or mobility. pt demo need for skilled OT services 2x week for 6 weeks to improve pts functional strength for safe mobility and tolerance of ADLs by d.c Rehabilitation Potential: Good Anticipated Interventions Anticipated Interventions: Strengthening, Joint Protection/Energy Conservation, Ergonomic Education, Education re assistive Equipment, Education re Diagnosis, Caregiver Training and Home Program Visit Plan Frequency: 2-3x /Week Duration: 6 Weeks TEXT: Thank you for the opportunity to evaluate your patient. For Medicare and Medicare HMO plans, please review the plan of care and approve it. It will need to be FAXED BACK to us at [phone] for Medicare purposes. Please let me know if there are questions or concerns regarding this plan of care. Physician Signature: Date:
--- NOTE | 2024-12-09 18:08 | HP.PTEVAL_ITS ---
Patient's Visit Information Visit Information Visit Information: ANA SOUZA is a 64 year old M referred to Physical Therapy by ALMA FALCON with a diagnosis of DIFFUSE LARGE B-CELL LYMPHOMA ,ADENOCARNICOMA. Date of Evaluation: 12/09/24 Physical Therapist: Calvin Cruz, PT, Cert MDT, OCS Visit Plan Frequency: 2x /Week Duration: 4 Weeks Plan: PT INTERVENTIONS ENDURANCE PROGRAM ,BLE STRENGTHENING ,FUNCTIONAL ENDURANCE , GAIT AND BALANCE TRAINING Subjective Subjective: This 64 y/o male physical therapy with lymphoma and lung CA. Patient developed weakness and found to have lymphoma in May and and Jun dx with lunga CA 2023. Patient [facility] to [facility] ,then started chemotherapy and immunotherapy since Oct q 3 weeks . Patient started prednisone in LBP. Patient denies pain.Nov [address] scan and showed DVT Patient is on 2 L02 and uses rollator for fait. Patient 2 story home with 4 steps with entrance with no rail. Patient has tub/shower with grab bar and Independant with dressing and bathing. Patient has poor appetite. Patient has no recent falls. Patient denies paresthesia/tingling. Patient condition affects QOL and function/ADLS and housework tasks. Patient goals to get stronger. 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 Objective Objective: POSTURE : mild forward posture GAIT: reciprocal pattern midl forward posture with 2L02 Spo2 96% ,HR 119 ~ 200ft BALANCE: GOOD- STAIRS: one step at time with rail NEURO: denies paresthesia/tingling ,reflexes intact MMT: ( peak force) quads right26.6 ,left 25.8 ,hip flexion right 24.1 ,left 19.8 ,hamstrings 20.9 right ,left 21.9 ,ankle 4/5 Balance/Special Test Scores CATSIB Score (Max score 120 seconds): 120 Lower Extremity Functional Score: 23 30 Second Chair Rise Test Seconds: 1 Goals Goal 1:: Patient to be I with HEP Goal Time Frame: 4-6 Weeks Goal 2:: Patient to improve peak force quads/hams/hip bt 5-10# to improve gait Goal Time Frame: 4-6 Weeks Goal 3:: Patient to improve gait with least restrictive device 500ft with 02 Goal Time Frame: 4-6 Weeks Goal 4:: Patient to improve demonstrate 50% to improve function and gait Goal Time Frame: 4-6 Weeks Goal 5:: Patient to improve LFES score by 5 points to improve QOL and function Goal Time Frame: 4-6 Weeks Rehabilitation Potential Physical Therapy Diagnosis: This patient has lung CA and lymphoma with decrease endurance ,gait ,weakness thus benefit from skilled PT Rehabilitation Potential: Good Anticipated Interventions Patient/Client Instruction: Educate patient on: Condition and Plan of Care For the Purpose of:: To decrease pain, To increase ROM, To improve muscle performance and motor function, To increase tolerance to activity/condition/position, To improve ability of physical actions for home/community/work/leisure, To improve gait and locomotor functions, To improve endurance, To improve balance, To reduce risk of recurrence and To improve tolerance to ADL's Therapeutic Exercise to Include: Strength training, Endurance training, Balance training and Dynamic Lumbar Stabilization Comment: BLE For the Purpose of:: To decrease pain, To increase ROM, To improve muscle performance and motor function, To improve ability to perform ADL's, To increase tolerance to activity/condition/position, To improve ability of physical actions for home/community/work/leisure, To improve health of tissue, To decrease soft tissue restriction, To increase flexibility/ROM, To improve endurance, To improve balance and To improve tolerance to ADL's Text: Thank you for the opportunity to evaluate your patient. For Medicare and Medicare HMO plans, please review the plan of care and approve it. It will need to be FAXED BACK to us at [phone] for Medicare purposes. For Medicare only, by signing this I certify the plan of care. Please let me know if there are questions or concerns regarding this plan of care. Physician Signature: Date:
--- NOTE | 2025-01-13 18:00 | HP.PTDCSUM ---
Discharge Summary D/C summary: It has been my pleasure to treat ANA SOUZA referred by ALMA FALCON, with the diagnosis of DIFFUSE LARGE B-CELL LYMPHOMA ,ADENOCARNICOMA for a total of 8 visit(s). Discharge Date: 01/13/25 Please see the following information for a summary of their discharge status. Subjective Subjective: Doing better ,walked yesterday at [employer] O2 same 2L02 Seen DR today tomorrow chemo tx Objective Objective/Function: POSTURE : mild forward posture GAIT: reciprocal pattern mild forward posture with 2L02 ~ 1/2 mile with rollator but no device in community BALANCE: GOOD- STAIRS: one step at time with rail NEURO: denies paresthesia/tingling ,reflexes intact MMT: ( peak force) quads right 35.6 ,left 35.8 ,hip flexion right 32.1 ,left 36.8 ,hamstrings 47.8 right ,left 40.1 ,ankle 4/5 Goals Goal 1:: Patient to be I with HEP Goal 2:: Patient to improve peak force quads/hams/hip bt 5-10# to improve gait Goal 3:: Patient to improve gait with least restrictive device 500ft with 02 Goal 4:: Patient to improve demonstrate 50% to improve function and gait Goal 5:: Patient to improve LFES score by 5 points to improve QOL and function Plan Plan: D/C D/C Information Discharge Comments: HEP d/c sentence: If there are questions or concerns regarding this patient's physical therapy, please feel free to call me at [phone]. Thank you for the referral of this patient. Sincerely, Calvin Cruz, PT, Cert MDT, OCS Balance/Gait/Functional tests Balance/Special Test Scores CATSIB Score (Max score 120 seconds): 120 Lower Extremity Functional Score: 38 30 Second Chair Rise Test Seconds: 1
--- NOTE | 2025-01-13 18:26 | HP.OTDCSUM_ITS ---
Discharge Summary D/C Summary: It has been my pleasure to treat ANA SOUZA under orders from ALMA FALCON, for the diagnosis of lymphoma Myeloma/debility for a total of 8 visit(s). Please see the following information for a summary of their discharge status. 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 Goals Patient Goals: Regain Strength, Decrease Pain and Be More Independent in ADLS Goal:: pt will demo a increase in bilateral UB strength by 15# to increase pts safe functional mobility (goal met) pt will dmeo a increase in bilateral public health service officer strength by 10# to increase IND with ADLs and IADLs (goal met) Goal:: pt will report pain no greater than 2/10 with sitting for 15 min by d/c (goal met) pt will demo sitting tolerance for 30 min with pain no greater than 3/10 by dc (goal met) Goal:: pt and family will demo understanding of using ad. eq. to conserve energy to perform ADLs at IND level by d/c ( goal met) pt and family will demo understanding of using ad. eq. to increase safety by d/c ( goal met) Goal:: pt will demo the ability to perform dynamic sitting balance tasks with no pain greater than 3/10 for functional ADLs by dc ( goal met) pt will demo increase in dynamic standing tolerance to 4 min to increase pts IND with grooming ADLs and skink by d/c ( goal met) pt and family will report understanding of safety jolene. for functional mobility in and out of home with rollator by d/c ( goal met) Plan Plan: d/c with HEP D/C Information Discharge Comments: pt has met OT goals and states he will cont. with increasing his endurance and strength with his HEP. pt agrees with d/c d/c sentence: If there are questions or concerns regarding this patient's occupational therapy, please fell free to call me at [phone]. Thank you for the referral of this patient. Sincerely, Ca Smith OTR/L, CHT
== END 2025-01-13 19:00 | disposition home or self-care (01) ==
LOC: OT 18:00
PROVIDERS: PCP Family Medicine
DX: C34.91 Malignant neoplasm of unspecified part of right bronchus or lung (principal); C83.33 Diffuse large B-cell lymphoma, intra-abdominal lymph nodes
CPT/HCPCS: 97110; 97162; 97166; 97530